=== PATIENT | male | born 1980 | race Caucasian/White ===

== ENCOUNTER 2023-06-04 04:27 | Emergency (ER) | payer OTHER, SELFPAY ==
[2023-06-04 04:30] VITALS: BP 128/84; PULSE 75; RESP 16; TEMP 36.7; O2SAT 100
[2023-06-04 04:51] VITALS: BP 126/86; PULSE 63; RESP 18; O2SAT 98
--- NOTE | 2023-06-04 04:56 | ED.GENADULT ---
HPI - General Adult General Chief complaint: Headache Stated complaint: migraine Time Seen by Provider: 06/04/23 04:51 History of Present Illness HPI narrative: Patient is a 42-year-old gentleman who presents to the emergency department with chief complaint of migraine headache. The patient reports he has history of migraines and reports that for the last 24 hours he has had a typical migraine. The patient reports this 1 is a bad 1 and has not been relieved with his typical Excedrin Migraine that he takes at home patient reports in the last 7 years he has had 2 migraines that have been this bad this does not feel any different from his typical migraine except that it is a severe 1 for him but is not the worst headache of his life. The patient reports no photophobia reports that the light and also sounds worsening his symptoms patient reports the nausea the patient denies focal neurological deficit Related Data Allergies Allergy/AdvReac Type Severity Reaction Status Date / Time No Known Allergies Allergy Verified 06/04/23 04:53 Review of Systems Review of Systems: A 10 system review of systems was completed on the patient and is negative except for what is stated in the HPI. Nursing and ancillary documentation was reviewed. Exam Narrative: GENERAL: Well-appearing, well-nourished, and in no acute distress. HEAD: Normocephalic, atraumatic. EYES: PERRLA and EOMI. ENT: Nares clear, no rhinorrhea or epistaxis. Mucous membranes moist. NECK: Supple. CHEST: Clear to auscultation. No respiratory distress. HEART: Regular rate and rhythm. No murmur heard. Normal peripheral pulses. ABDOMEN: Soft, nontender, nondistended, normal active bowel sounds. EXTREMITIES: Normal range of motion. No edema. SKIN: Warm, dry, no rash. NEURO: No focal deficits. Alert and oriented x3. PSYCH: Normal mood and affect. Course Vital Signs Vital signs: Vital Signs Temperature 36.7 C 06/04/23 04:30 Pulse Rate 75 06/04/23 04:30 Respiratory Rate 16 06/04/23 04:30 Blood Pressure 128/84 06/04/23 04:30 Pulse Oximetry 100 06/04/23 04:30 Oxygen Delivery Room Air 06/04/23 04:30 Temperature 36.7 C 06/04/23 04:30 Pulse Rate 60 06/04/23 05:26 Respiratory Rate 16 06/04/23 05:26 Blood Pressure 126/81 06/04/23 05:26 Pulse Oximetry 100 06/04/23 05:26 Oxygen Delivery Room Air 06/04/23 04:51 Medical Decision Making Vital Signs Vital Signs: Vital Signs Temperature 36.7 C 06/04/23 04:30 Pulse Rate 75 06/04/23 04:30 Respiratory Rate 16 06/04/23 04:30 Blood Pressure 128/84 06/04/23 04:30 Pulse Oximetry 100 06/04/23 04:30 Oxygen Delivery Room Air 06/04/23 04:30 Temperature 36.7 C 06/04/23 04:30 Pulse Rate 60 06/04/23 05:26 Respiratory Rate 16 06/04/23 05:26 Blood Pressure 126/81 06/04/23 05:26 Pulse Oximetry 100 06/04/23 05:26 Oxygen Delivery Room Air 06/04/23 04:51 Discharge Plan Discharge Clinical Impression: Headache Patient Disposition: Home, Self-Care Condition: Stable Instructions: Antibiotic Form, Acute Headache (ED) Follow-up/Referrals: Blu Burk MD [Primary Care Provider] - Time of Disposition: :
[2023-06-04] MEDS: SODIUM CHLORIDE 0.9% IV 1,000 ML 999 ML IV CONT (05:03)
[2023-06-04] MEDS: KETOROLAC 30 MG/ML VIAL (*BKC) IV PUSH (05:06)
[2023-06-04] MEDS: diphenhydrAMINE HCl INJ 50 MG/ML VIAL IV PUSH (05:06)
[2023-06-04] MEDS: PROCHLORPERAZINE EDISYLATE 10 MG/2 ML VIAL IV PUSH (05:06)
[2023-06-04 05:26] VITALS: BP 126/81; PULSE 60; RESP 16; O2SAT 100
[2023-06-04 06:05] VITALS: BP 121/80; PULSE 55; RESP 17; O2SAT 100
== END 2023-06-04 06:00 | disposition home or self-care (01) ==
PROVIDERS: Emergency Provider Emergency Medicine; PCP Emergency Medicine
DX: R51.9 Headache, unspecified (principal)
CPT/HCPCS: 96361; 96374; 96375; 99284; J0780; J1200; J1885; J7030

== ENCOUNTER 2023-06-26 15:19 | Outpatient (CLI) | payer OTHER, SELFPAY ==
--- NOTE | ~2023-06-26 | XR_ITS ---
EXAMINATION: XR lumbar spine 2-3V DATE: 06/26/2023 15:42 INDICATION: Chronic low back pain radiating down right leg. TECHNIQUE: 3 views of lumbar spine were obtained. COMPARISON: None. FINDINGS: There is 4 degrees dextrocurvature lumbar spine. There is 3 mm retrolisthesis of L5 on S1. There is mild chronic anterior wedging of L1 vertebral body. There is mildly decreased disc height at L1-L2, L4-L5, and L5-S1. The facet joints are unremarkable. IMPRESSION: 1. Mild lumbar spondylosis. Reviewed, dictated and finalized at location A. IMPRESSION: 1. Mild lumbar spondylosis.
--- NOTE | ~2023-06-26 | XR_ITS ---
EXAMINATION: XR chest 2V 06/26/2023 15:43 INDICATION: Low back pain PROCEDURE: 2 view chest COMPARISON: 03/06/2018 FINDINGS: The lungs are clear. The cardiomediastinal silhouette is within normal limits. There are no pleural effusions. There is no pneumothorax suspected. There is pectus excavatum. IMPRESSION: 1: NO ACUTE CARDIOPULMONARY DISEASE. Reviewed, dictated and finalized at location B.
[2023-06-26 16:33] LABS: Basophils Absolute Auto 0.1 K/mm3 (0.0-0.1); Basophils Percent Auto 1.4 % (0.2-1.2); Eosinophils Absolute Auto 0.5 K/mm3 (0-0.3); Eosinophils Percent Auto 6.7 % (0-4.4); Hematocrit 41.8 % (42.0-52.0); Hemoglobin 13.9 g/dL (14.0-18.0); Immature Granulocyte Absolute 0.01 K/mm3 (0.00-0.031); Immature Granulocyte Percent A 0.1 % (0-0.5); Lymphocytes Absolute Auto 2.24 K/mm3 (0.9-3.2); Lymphocytes Percent Auto 30.4 % (18.3-44.2); Mean Corpuscular HGB Conc 33.3 g/dl (32-36); Mean Corpuscular Hemoglobin 30.3 pg (26-34); Mean Corpuscular Volume 91.3 fl (80-100); Mean Platelet Volume 9.8 fl (7.4-10.4); Monocytes Absolute Auto 0.6 K/mm3 (0.1-0.6); Monocytes Percent Auto 7.7 % (2.6-8.5); Neutrophils Percent Auto 53.7 % (45.5-73.1); Platelet Count Result 261 k/mm3 (150-375); Red Blood Count 4.58 M/mm3 (4.6-6.20); White Blood Count 7.4 K/mm3 (4.5-10.0)
[2023-06-26 16:37] LABS: Alanine Aminotransferase 78 U/L (6-50); Albumin Level 4.8 g/dL (3.5-5.1); Alkaline Phosphatase 52 U/L (38-126); Anion Gap 5 mmol/L (8-16); Aspartate Amino Transferase 43 U/L (17-59); Bilirubin,Total 0.8 mg/dL (0.2-1.3); Blood Urea Nitrogen 9 mg/dL (9-20); Calcium 9.4 mg/dL (8.4-10.2); Carbon Dioxide 33 mmol/L (22-30); Chloride 101 mmol/L (98-107); Cholesterol 200 mg/dL (0-200); Estimated Glomerular Filt Rate > 60; Glucose 70 mg/dL (65-110); HDL Direct 48 mg/dL; Potassium 4.1 mmol/L (3.4-5.0); Sodium 139 mmol/L (137-145); Triglycerides 130 mg/dL (<150)
[2023-06-26 16:53] LABS: LDL Cholesterol Direct 119 mg/dL
[2023-06-26 17:03] LABS: Hemoglobin A1C 5.1 % (<5.7)
[2023-06-26 17:09] LABS: Thyroid Stimulating Hormone 0.749 uIU/mL (0.465-4.680)
[2023-06-26 17:11] LABS: Creatinine Urine 59.6 mg/dL
[2023-06-26 17:47] LABS: Microalbumin Urine Random < 6.0 mg/L (0-16.7)
[2023-06-26 17:48] LABS: MALB Creatinine Ratio < 10.1 mg/g (0-30)
[2023-06-26 17:49] LABS: Free T4 Free Thyroxine 0.83 ng/mL (0.78-2.19); Vitamin D 25 Hydroxy 48.3 ng/mL
== END 2023-06-26 15:20 | disposition home or self-care (01) ==
PROVIDERS: PCP Emergency Medicine; Visit Provider Emergency Medicine
DX: M54.50 Low back pain, unspecified (principal); Z87.891 Personal history of nicotine dependence; M43.06 Spondylolysis, lumbar region
CPT/HCPCS: 36415; 71046; 72100; 80053; 80061; 82043; 82306; 83036; 84439; 84443; 85025

== ENCOUNTER 2023-10-16 09:54 | Emergency (ER) | payer OTHER, SELFPAY ==
--- NOTE | ~2023-10-16 | XR_ITS ---
EXAMINATION: XR chest 2V DATE: 10/16/2023 13:03 INDICATION: Fever. Cough. TECHNIQUE: Frontal and lateral views of the chest were obtained. COMPARISON: Chest 2 views 06/26/2023 FINDINGS: There is no pneumonia, pleural effusion, or pneumothorax. The heart size is normal. IMPRESSION: 1. No acute cardiopulmonary disease. Reviewed, dictated and finalized at location A. [employer]
[2023-10-16 10:17] VITALS: BP 122/76; PULSE 106; RESP 20; TEMP 37.3; O2SAT 100
[2023-10-16 11:07] LABS: Influenza A QL RT-PCR Positive (Negative); Influenza B QL RT-PCR Negative (Negative); RSV RNA, RT-PCR Negative (Negative); SARS-CoV-2 RNA PCR Negative (Negative)
--- NOTE | 2023-10-16 11:49 | ED.GENADULT ---
HPI - General Adult General Chief complaint: Unspecified Stated complaint: fever, fatigue Time Seen by Provider: 10/16/23 13:18 History of Present Illness HPI narrative: Focused HPI: [address] Fernando Boyce is a 42 y/o male who presents with reports having fever/ nausea/vomiting for the past two days along with migraines. He states he hasn't been able to keep anything down for 2 days. Denies abdominal pain/ just nausea/ GENERAL: appears fatigued, and in no acute distress. HEAD: Normocephalic, atraumatic. CHEST: Clear to auscultation. ?No respiratory distress. HEART: Regular rate and rhythm.? NEURO: ?Alert and oriented x3. Patient screened in triage and initial orders placed.? ?Additional care and disposition to be based upon?diagnostic testing and treatment. Related Data Allergies Allergy/AdvReac Type Severity Reaction Status Date / Time No Known Allergies Allergy Verified 10/16/23 09:56 Course Vital Signs Vital signs: Vital Signs Temperature 37.3 C 10/16/23 10:17 Pulse Rate 106 H 10/16/23 10:17 Respiratory Rate 10/16/23 10:17 Blood Pressure 122/76 10/16/23 10:17 Pulse Oximetry 10/16/23 10:17 Oxygen Delivery Room Air 10/16/23 10:17 Temperature 37.3 C 10/16/23 10:17 Pulse Rate 106 H 10/16/23 10:17 Respiratory Rate 10/16/23 10:17 Blood Pressure 122/76 10/16/23 10:17 Pulse Oximetry 10/16/23 10:17 Oxygen Delivery Room Air 10/16/23 12:25 Medical Decision Making Vital Signs Vital Signs: Vital Signs Temperature 37.3 C 10/16/23 10:17 Pulse Rate 106 H 10/16/23 10:17 Respiratory Rate 10/16/23 10:17 Blood Pressure 122/76 10/16/23 10:17 Pulse Oximetry 10/16/23 10:17 Oxygen Delivery Room Air 10/16/23 10:17 Temperature 37.3 C 10/16/23 10:17 Pulse Rate 106 H 10/16/23 10:17 Respiratory Rate 10/16/23 10:17 Blood Pressure 122/76 10/16/23 10:17 Pulse Oximetry 10/16/23 10:17 Oxygen Delivery Room Air 10/16/23 12:25 Lab Data 10/16/23 12:29 10/16/23 12:29 Labs: Lab Results 10/16/23 10/16/23 Range/Units 10:26 12:29 WBC 6.2 (4.5-10.0) K/mm3 RBC 4.83 (4.6-6.20) M/mm3 Hgb 14.5 (14.0-18.0) g/dL Hct 43.7 (42.0-52.0) % MCV 90.5 (80-100) fl MCH 30.0 (26-34) pg MCHC 33.2 (32-36) g/dl RDW 12.1 (11.5-14.5) % Plt Count 229 (150-375) k/mm3 MPV 9.9 (7.4-10.4) fl Immature Gran % (Auto) 0.3 (0-0.5) % Neut % (Auto) 78.8 H (45.5-73.1) % Lymph % (Auto) 11.1 L (18.3-44.2) % [place] % (Auto) 9.2 H (2.6-8.5) % Eos % (Auto) 0.0 (0-4.4) % Baso % (Auto) 0.6 (0.2-1.2) % Lymph # (Auto) 0.69 L (0.9-3.2) K/mm3 [place] # (Auto) 0.6 (0.1-0.6) K/mm3 Eos # (Auto) 0.0 (0-0.3) K/mm3 Baso # (Auto) 0.0 (0.0-0.1) K/mm3 Abs Immat Gran (auto) 0.02 (0.00-0.031) K/mm3 Absolute Neuts (auto) 4.9 (1.3-6.7) K/mm3 Absolute Nucleated RBC 0.0 (0.0-0.012) K/mm3 Nucleated RBC % 0.0 (0.0-0.2) % Sodium 140 (137-145) mmol/L Potassium 3.7 (3.4-5.0) mmol/L Chloride 107 (98-107) mmol/L Carbon Dioxide 22 (22-30) mmol/L Anion Gap 11 (8-16) mmol/L BUN 10 (9-20) mg/dL Creatinine 1.00 (0.7-1.3) mg/dL Estim Creat Clear Calc 91 ml/min Estimated GFR > 60 (59 - ) Glucose 122 H (65-110) mg/dL Calcium 9.3 (8.4-10.2) mg/dL Total Bilirubin 0.5 (0.2-1.3) mg/dL AST 27 (17-59) U/L ALT 35 (6-50) U/L Alkaline Phosphatase 67 (38-126) U/L Total Protein 8.0 (6.3-8.2) g/dL Albumin 4.7 (3.5-5.1) g/dL Influenza A (RT-PCR) Positive A (Negative) Influenza B (RT-PCR) Negative (Negative) RSV (RT-PCR) Negative (Negative) SARS-CoV-2 RNA (RT-PCR) Negative (Negative) Discharge Plan Discharge Clinical Impression: Influenza A Patient Disposition: Home, Self-Care Condition: Stable Instructions: Antibiotic Form, Clear Liquid Diet (ED), Acute Nausea and Vomitin
[2023-10-16] MEDS: ONDANSETRON INJ 4 MG/2 ML VIAL IV PUSH ×2 (12:22→14:53)
[2023-10-16] MEDS: FAMOTIDINE 20 MG/2 ML VIAL IV PUSH (12:22)
[2023-10-16] MEDS: ACETAMINOPHEN 500 MG TABLET 1000 MG PO (12:22)
[2023-10-16] MEDS: KETOROLAC 30 MG/ML VIAL (*BKC) IV PUSH (12:22)
[2023-10-16 12:39] LABS: Basophils Percent Auto 0.6 % (0.2-1.2); Hematocrit 43.7 % (42.0-52.0); Hemoglobin 14.5 g/dL (14.0-18.0); Immature Granulocyte Absolute 0.02 K/mm3 (0.00-0.031); Immature Granulocyte Percent A 0.3 % (0-0.5); Lymphocytes Absolute Auto 0.69 K/mm3 (0.9-3.2); Lymphocytes Percent Auto 11.1 % (18.3-44.2); Mean Corpuscular HGB Conc 33.2 g/dl (32-36); Mean Corpuscular Volume 90.5 fl (80-100); Mean Platelet Volume 9.9 fl (7.4-10.4); Monocytes Absolute Auto 0.6 K/mm3 (0.1-0.6); Monocytes Percent Auto 9.2 % (2.6-8.5); Neutrophils Absolute Auto 4.9 K/mm3 (1.3-6.7); Neutrophils Percent Auto 78.8 % (45.5-73.1); Platelet Count Result 229 k/mm3 (150-375); Red Blood Count 4.83 M/mm3 (4.6-6.20); Red Cell Distribution Width 12.1 % (11.5-14.5); White Blood Count 6.2 K/mm3 (4.5-10.0)
[2023-10-16 12:50] LABS: Alanine Aminotransferase 35 U/L (6-50); Albumin Level 4.7 g/dL (3.5-5.1); Alkaline Phosphatase 67 U/L (38-126); Anion Gap 11 mmol/L (8-16); Aspartate Amino Transferase 27 U/L (17-59); Bilirubin,Total 0.5 mg/dL (0.2-1.3); Blood Urea Nitrogen 10 mg/dL (9-20); Calcium 9.3 mg/dL (8.4-10.2); Carbon Dioxide 22 mmol/L (22-30); Chloride 107 mmol/L (98-107); Estimated CRCL calculation 91 ml/min; Estimated Glomerular Filt Rate > 60; Glucose 122 mg/dL (65-110); Potassium 3.7 mmol/L (3.4-5.0); Sodium 140 mmol/L (137-145)
--- NOTE | 2023-10-16 14:45 | ED.GENADULT ---
HPI - General Adult General Chief complaint: Unspecified Stated complaint: fever, fatigue Time Seen by Provider: 10/16/23 13:18 History of Present Illness HPI narrative: 32-year-old male presenting to the emergency department for evaluation generalized body ache cough congestion with associated nausea and vomiting. Patient states symptoms have been ongoing for the last few days. Patient suspects he got influenza a from a co-worker. Related Data Allergies Allergy/AdvReac Type Severity Reaction Status Date / Time No Known Allergies Allergy Verified 10/16/23 09:56 Review of Systems Review of Systems: All systems reviewed & are unremarkable except as noted in HPI and below Exam Narrative: APPEARANCE: Ill-appearing HEAD: normocephalic, atraumatic. EYES: PERRLA/EOMI, conjunctivae clear. NOSE: Normal no drainage EARS:TMS clear with good light reflex. THROAT: Pharynx clear, no exudate. NECK: Supple. No adenopathy, no masses. RESPIRATORY: Airway patent, respirations nonlabored. Clear to auscultation bilaterally, no rales, rhonchi, wheezing. CARDIOVASCULAR: Regular rate and rhythm without murmurs rubs or gallops. ABDOMINAL: Soft, nontender, nondistended, normal bowel sounds MUSCULOSKELETAL: Moves all extremities. Strength/ROM intact, No edema, No calf tenderness. NEURO: Alert. Cranial nerves II through XII intact. Good gait. Good coordination SKIN: Warm, dry. Normal Color Course Course Emergency Course: [age] old male presenting ED for evaluation of increased generalized body aches cough and congestion. Patient is afebrile with no leukocytosis but a stable hemoglobin of 14.5 no acute abnormalities on the CMP and patient did test positive for influenza A. Chest x-ray shows no acute cardiopulmonary abnormality. Vital Signs Vital signs: Vital Signs Temperature 99.2 F 10/16/23 10:17 Pulse Rate 106 H 10/16/23 10:17 Respiratory Rate 10/16/23 10:17 Blood Pressure 122/76 10/16/23 10:17 Pulse Oximetry 100 10/16/23 10:17 Oxygen Delivery Room Air 10/16/23 10:17 Temperature 99.2 F 10/16/23 10:17 Pulse Rate 106 H 10/16/23 10:17 Respiratory Rate 20 10/16/23 10:17 Blood Pressure 122/76 10/16/23 10:17 Pulse Oximetry 100 10/16/23 10:17 Oxygen Delivery Room Air 10/16/23 12:25 Medical Decision Making Differential Diagnosis Differential Diagnosis: Influenza a, pneumonia, COVID Vital Signs Vital Signs: Vital Signs Temperature 99.2 F 10/16/23 10:17 Pulse Rate 106 H 10/16/23 10:17 Respiratory Rate 10/16/23 10:17 Blood Pressure 122/76 10/16/23 10:17 Pulse Oximetry 10/16/23 10:17 Oxygen Delivery Room Air 10/16/23 10:17 Temperature 99.2 F 10/16/23 10:17 Pulse Rate 106 H 10/16/23 10:17 Respiratory Rate 10/16/23 10:17 Blood Pressure 122/76 10/16/23 10:17 Pulse Oximetry 10/16/23 10:17 Oxygen Delivery Room Air 10/16/23 12:25 Lab Data Lab results reviewed: Yes I reviewed the patient's lab results. 10/16/23 12:29 10/16/23 12:29 Labs: Lab Results 10/16/23 10/16/23 Range/Units 10:26 12:29 WBC 6.2 (4.5-10.0) K/mm3 RBC 4.83 (4.6-6.20) M/mm3 Hgb 14.5 (14.0-18.0) g/dL Hct 43.7 (42.0-52.0) % MCV 90.5 (80-100) fl MCH 30.0 (26-34) pg MCHC 33.2 (32-36) g/dl RDW 12.1 (11.5-14.5) % Plt Count 229 (150-375) k/mm3 MPV 9.9 (7.4-10.4) fl Immature Gran % (Auto) 0.3 (0-0.5) % Neut % (Auto) 78.8 H (45.5-73.1) % Lymph % (Auto) 11.1 L (18.3-44.2) % [place] % (Auto) 9.2 H (2.6-8.5) % Eos % (Auto) 0.0 (0-4.4) % Baso % (Auto) 0.6 (0.2-1.2) % Lymph # (Auto) 0.69 L (0.9-3.2) K/mm3 [place] # (Auto) 0.6 (0.1-0.6) K/mm3 Eos # (Auto) 0.0 (0-0.3) K/mm3 Baso # (Auto) 0.0 (0.0-0.1) K/mm3 Abs Immat Gran (auto) 0.02 (0.00-0.031) K/mm3 Absolute Neuts (auto) 4.9 (1.3-6.7) K/mm3 Absolute Nucleated RBC 0.0 (0.0-0.012) K/mm3 Nucleate
[2023-10-16] MEDS: SODIUM CHLORIDE 0.9% IV 1,000 ML 999 ML IV CONT (14:53)
== END 2023-10-16 15:38 | disposition home or self-care (01) ==
PROVIDERS: Nurse Practitioner Family; Emergency Provider Emergency Medicine; PCP Emergency Medicine
DX: J10.1 Influenza due to other identified influenza virus with other respiratory manifestations (principal); Z20.822 Contact with and (suspected) exposure to COVID-19
CPT/HCPCS: 36415; 71046; 80053; 85025; 87637; 96361; 96374; 96375; 96376; 99284; A9270; J1885; J2405; J7030

== ENCOUNTER 2023-11-24 07:32 | Outpatient (CLI) | payer OTHER, SELFPAY ==
--- NOTE | ~2023-11-24 | US_ITS ---
EXAMINATION: US abdomen limited DATE: 11/24/2023 09:30 INDICATION: Elevated liver enzymes TECHNIQUE: Multiple grayscale and Doppler ultrasound images of the abdomen were obtained. COMPARISON: None available FINDINGS: Bowel gas obscures visualization of the pancreas. The visualized portions of the pancreas a re unremarkable. The liver is normal with normal echogenicity and echotexture. No surface nodularity. Normal hepatopetal flow in the main portal vein. There are multiple stones in the nondistended gallb ladder. No gallbladder wall thickening or pericholecystic fluid. The normal common bile duct measures 5 mm. There was no sonographic [place] sign. IMPRESSION: 1. Cholelithiasis without additional findings of cholecystitis. Reviewed, dictated and finalized at location B. [employer] SPECIALIST
[2023-11-24 08:34] LABS: Hematocrit 43.4 % (42.0-52.0); Hemoglobin 14.4 g/dL (14.0-18.0); Mean Corpuscular HGB Conc 33.2 g/dl (32-36); Mean Corpuscular Volume 90.4 fl (80-100); Platelet Count Result 264 k/mm3 (150-375); Red Cell Distribution Width 12.2 % (11.5-14.5); White Blood Count 7.3 K/mm3 (4.5-10.0)
[2023-11-24 08:46] LABS: Alanine Aminotransferase 66 U/L (6-50); Albumin Level 4.6 g/dL (3.5-5.1); Alkaline Phosphatase 86 U/L (38-126); Amylase 81 U/L (30-110); Anion Gap 8 mmol/L (8-16); Aspartate Amino Transferase 43 U/L (17-59); Bilirubin,Total 0.5 mg/dL (0.2-1.3); Blood Urea Nitrogen 10 mg/dL (9-20); Calcium 9.7 mg/dL (8.4-10.2); Carbon Dioxide 24 mmol/L (22-30); Chloride 109 mmol/L (98-107); Estimated Glomerular Filt Rate > 60; Glucose 97 mg/dL (65-110); Lipase 68 U/L (23-300); Potassium 4.2 mmol/L (3.4-5.0); Sodium 141 mmol/L (137-145)
[2023-11-24 09:04] LABS: Iron 91 ug/dL (49-181)
[2023-11-24 09:17] LABS: Prostate Specific Antigen 0.8 ng/mL (< OR = 4.0); Thyroid Stimulating Hormone 0.972 uIU/mL (0.465-4.680)
[2023-11-24 09:20] LABS: Free T4 Free Thyroxine 0.74 ng/mL (0.78-2.19)
[2023-11-24 09:22] LABS: Appearance Urine Clear (Clear); Bilirubin Urine Negative (Negative); Blood Urine Negative (Negative); Color Urine Yellow (Yellow); Glucose Urine UA Negative (Negative); Ketones Urine Negative (Negative); Leukocyte Esterase Ur Negative LEU/UL (NEGATIVE); Nitrate Urine Negative (Negative); Protein Urine Negative (Negative); Specific Grav Ur 1.016 (1.001-1.035); Urobilinogen Urine 0.2 mg/dL (<2.0); pH Urine 5.5 (5.0-9.0)
[2023-11-24 09:28] LABS: Add Urine Microscopic? NO
[2023-11-24 09:35] LABS: Hepatitis B Surface Antigen Negative (Negative)
[2023-11-24 09:41] LABS: HAV RESULT Negative (Negative); Hepatitis B Core IgM Result Negative (Negative)
[2023-11-24 09:53] LABS: Hepatitis C Virus Antibody Negative (Negative)
== END 2023-11-24 07:33 | disposition home or self-care (01) ==
LOC: ANHIMG 07:36
PROVIDERS: PCP Emergency Medicine; Visit Provider Emergency Medicine
DX: Z00.00 Encounter for general adult medical examination without abnormal findings (principal); R74.01 Elevation of levels of liver transaminase levels; K80.20 Calculus of gallbladder without cholecystitis without obstruction
CPT/HCPCS: 36415; 76705; 80053; 80074; 81003; 82150; 83013; 83540; 83690; 84153; 84439; 84443; 85027